=== PATIENT | male | born 1945 | race Caucasian/White ===

== ENCOUNTER 2018-03-16 10:06 | Day surgery (SDC) | payer MEDICARE ==
[~2018-03-16] VITALS: Ht 165.1 cm; Wt 60.3 kg
[~2018-03-16 10:06] MED LIST: CIPR500 PO; DOCU100 PO; FINA5 PO; HYDR1TAB94 PO; Omeprazole20 M1 PO; TAMS.4ER PO; [UNRECOGNIZED DRUG - OTHER] PO
== END 2018-03-16 13:18 | disposition home or self-care (01) ==
LOC: ORSCSDS 10:06
PROVIDERS: Internal Medicine Gastroenterology
PROC: 0DBN8ZX Excision of Sigmoid Colon, Via Natural or Artificial Opening Endoscopic, Diagnostic (ICD-10-PCS; principal; 2018-03-16 11:45)
PROC: 0DBH8ZX Excision of Cecum, Via Natural or Artificial Opening Endoscopic, Diagnostic (ICD-10-PCS; principal; 2018-03-16 11:45)
PROC: 0DBL8ZX Excision of Transverse Colon, Via Natural or Artificial Opening Endoscopic, Diagnostic (ICD-10-PCS; principal; 2018-03-16 11:45)
PROC: 0DBP8ZX Excision of Rectum, Via Natural or Artificial Opening Endoscopic, Diagnostic (ICD-10-PCS; principal; 2018-03-16 11:45)
DX: Z12.11 Encounter for screening for malignant neoplasm of colon (principal); D12.0 Benign neoplasm of cecum; D12.3 Benign neoplasm of transverse colon; D12.5 Benign neoplasm of sigmoid colon; D12.8 Benign neoplasm of rectum; K63.5 Polyp of colon; K64.4 Residual hemorrhoidal skin tags; K64.8 Other hemorrhoids; K57.30 Diverticulosis of large intestine without perforation or abscess without bleeding; J43.9 Emphysema, unspecified; F17.210 Nicotine dependence, cigarettes, uncomplicated; Z79.899 Other long term (current) drug therapy
CPT/HCPCS: 88305; J7120

== ENCOUNTER 2020-04-15 13:53 | Emergency (ER) | payer MEDICARE ==
[~2020-04-15] VITALS: Ht 167.6 cm; Wt 59.9 kg
[~2020-04-15 13:53] MED LIST changes: +ASPI81CH PO
[2020-04-15] MEDS ORDERED: ROSUVASTATIN CAL5 MG PO (16:16)
== END 2020-04-15 19:52 | disposition home or self-care (01) ==
LOC: ER 13:53
DX: M25.561 Pain in right knee (principal); M25.551 Pain in right hip; I69.351 Hemiplegia and hemiparesis following cerebral infarction affecting right dominant side; F17.210 Nicotine dependence, cigarettes, uncomplicated; Z79.82 Long term (current) use of aspirin; Z79.899 Other long term (current) drug therapy; W19.XXXA Unspecified fall, initial encounter
CPT/HCPCS: 70450; 73502; 73564; 99284-25

== ENCOUNTER 2020-05-22 00:23 | Day surgery (SDC) | payer MEDICARE ==
[~2020-05-22 00:23] MED LIST changes: +ROSUVASTATIN CAL5 MG PO
== END 2020-05-22 22:39 | disposition home or self-care (01) ==
LOC: WOUND 00:23
DX: L89.151 Pressure ulcer of sacral region, stage 1 (principal); I69.351 Hemiplegia and hemiparesis following cerebral infarction affecting right dominant side; F17.210 Nicotine dependence, cigarettes, uncomplicated; J43.9 Emphysema, unspecified; G25.81 Restless legs syndrome; Z79.82 Long term (current) use of aspirin; Z79.899 Other long term (current) drug therapy
CPT/HCPCS: G0463

== ENCOUNTER 2021-07-06 00:32 | Inpatient (IN) | payer OTHER, MEDICARE ==
[~2021-07-06] VITALS: Ht 182.9 cm; Wt 55.7 kg
[~2021-07-06 00:32] MED LIST changes: +DULO30 PO; +GABA100
[2021-07-06 01:17] LABS: BASOPHILS ABSOLUTE AUTO 0.01 K/mm3 (0.00-0.23); BASOPHILS PERCENT AUTO 0 % (0-2); EOSINOPHILS ABSOLUTE AUTO 0.11 K/mm3 (0.00-0.68); EOSINOPHILS PERCENT AUTO 1 % (0-6); Hematocrit 39.2 % (37.0-53.0); IMMATURE GRAN ABSOLUTE AUTO 0.05 K/mm3 (0.00-0.10); IMMATURE GRAN PERCENT AUTO 1 % (0-1); LYMPHOCYTES ABSOLUTE AUTO 0.51 K/mm3 (0.84-5.20); LYMPHOCYTES PERCENT AUTO 5 % (21-46); MONOCYTES ABSOLUTE AUTO 0.72 K/mm3 (0.16-1.47); MONOCYTES PERCENT AUTO 7 % (4-13); Mean Corpuscular HGB 29.5 pg (26.0-34.0); Mean Corpuscular HGB Conc 33.2 g/dL (31.5-36.5); Mean Corpuscular Volume 89 fL (80-100); Mean Platelet Volume 9.6 fL (9.1-12.4); NEUTROPHILS ABSOLUTE AUTO 8.65 K/mm3 (1.96-9.15); NEUTROPHILS PERCENT AUTO 86 % (41-73); Platelet Count 198 K/mm3 (150-400); RDW Coefficient Variation 13.6 % (11.7-14.2); RDW Standard Deviation 44.6 fL (35.1-46.3); Red Blood Cell Count 4.41 M/mm3 (4.30-5.90); White Blood Cell Count 10.05 K/mm3 (4.00-11.30)
[2021-07-06 01:35] LABS: Alanine Aminotransfer (ALT/SGP 21 U/L (12-78); Albumin, Blood 3.1 g/dL (3.4-5.0); Albumin/Globulin Ratio 0.8 (0.8-1.8); Alk Phos 109 U/L (50-136); Anion Gap 7 mmol/L (6-16); Aspartate Aminotrans (AST/SGOT 23 U/L (12-37); Bilirubin, Total 0.8 mg/dL (0.1-1.0); Blood Urea Nitrogen 10 mg/dL (8-24); Bun/Creatinine Ratio 19.9 (12.0-20.0); CO2, Blood 25 mmol/L (21-32); Calcium, Blood 8.7 mg/dL (8.5-10.1); Chloride, Blood 105 mmol/L (98-108); Glomerular Filtration Rate >60 (60-); Glucose, Blood 190 mg/dL (70-99); Potassium, Blood 3.7 mmol/L (3.5-5.5); Sodium, Blood 137 mmol/L (136-145); Total Protein, Blood 7.1 g/dL (6.4-8.2)
[2021-07-06 02:58] LABS: Source, Urine Foley catheter
[2021-07-06 03:01] LABS: Bilirubin, Urine Neg (Neg); Blood, Urine 5+ (Neg); Glucose Qualitative, Urine Neg (Neg); Ketones, Urine Neg (Neg); Leukocyte Esterase, Urine 3+ (Neg); Nitrite, Urine Pos (Neg); Protein, Urine Neg (Neg); Urobilinogen, Urine NORM (Normal)
[2021-07-06 03:03] LABS: Appearance, Urine Hazy (Clear); Color, Urine Yellow (P-Yellow)
[2021-07-06 03:08] LABS: Bacteria Many /hpf; Red Blood Cells, Urine 0-2 /hpf (0-2); Squamous Epithelial Cells Not Seen /hpf (Few); White Blood Cells, Urine 50-100 /hpf (0-5)
[2021-07-06 04:42] LABS: BASOPHILS ABSOLUTE AUTO 0.02 K/mm3 (0.00-0.23); BASOPHILS PERCENT AUTO 0 % (0-2); EOSINOPHILS ABSOLUTE AUTO 0.06 K/mm3 (0.00-0.68); EOSINOPHILS PERCENT AUTO 1 % (0-6); Hematocrit 35.4 % (37.0-53.0); Hemoglobin 11.5 g/dL (13.5-17.5); IMMATURE GRAN ABSOLUTE AUTO 0.07 K/mm3 (0.00-0.10); IMMATURE GRAN PERCENT AUTO 1 % (0-1); LYMPHOCYTES ABSOLUTE AUTO 0.82 K/mm3 (0.84-5.20); LYMPHOCYTES PERCENT AUTO 7 % (21-46); MONOCYTES PERCENT AUTO 7 % (4-13); Mean Corpuscular HGB 29.1 pg (26.0-34.0); Mean Corpuscular HGB Conc 32.5 g/dL (31.5-36.5); Mean Corpuscular Volume 90 fL (80-100); Mean Platelet Volume 9.6 fL (9.1-12.4); NEUTROPHILS ABSOLUTE AUTO 9.85 K/mm3 (1.96-9.15); NEUTROPHILS PERCENT AUTO 85 % (41-73); Platelet Count 174 K/mm3 (150-400); RDW Coefficient Variation 13.7 % (11.7-14.2); RDW Standard Deviation 44.9 fL (35.1-46.3); Red Blood Cell Count 3.95 M/mm3 (4.30-5.90); White Blood Cell Count 11.62 K/mm3 (4.00-11.30)
[2021-07-06 05:10] LABS: Anion Gap 6 mmol/L (6-16); Blood Urea Nitrogen 10 mg/dL (8-24); Bun/Creatinine Ratio 18.2 (12.0-20.0); CO2, Blood 25 mmol/L (21-32); Calcium, Blood 8.1 mg/dL (8.5-10.1); Chloride, Blood 107 mmol/L (98-108); Creatinine, Blood 0.55 mg/dL (0.60-1.20); Glomerular Filtration Rate >60 (60-); Glucose, Blood 129 mg/dL (70-99); Potassium, Blood 3.7 mmol/L (3.5-5.5); Sodium, Blood 138 mmol/L (136-145)
--- NOTE | 2021-07-06 06:02 | NUR ---
PT ADMITTED TO ROOM ICU 11 FROM ED. REPORT RECEIVED AND ASSUMED CARE. PT ARRIVES TO ROOM AT 0435. SLIDE TRANSFERRED TO BED FROM [facility]. 500 ML NS INFUSION IN PROCESS PER ORDERS. PT NON-VERBAL. DOES ANSWER YES OR NO QUESTIONS AT TIMES. PT IN NORMAL SINUS RHYTHM. REMAINS WITH HYPOTENSION. WILL CONTINUE TO MONITOR PT, AND WILL REPORT OFF TO ONCOMING RN.
--- NOTE | 2021-07-06 08:22 | NUR ---
ASSUMED CARE OF PT. PT IN ROMM RESTING AND COMFORTABLE. ASSESSMENT STATED AND VITALS WNL. PT REMAINS ON ROOM AIR. WILL CONTINUE TO MONITOR
--- NOTE | 2021-07-06 10:07 | NUR ---
Chart review revealed pt had MBSS 05/16/21 with recommendation that he be NPO and consider non-oral feeding system. Discussion with patient's today over the phone revealed the patient has been eating by mouth only nectar thick cream of wheat, nectar thick milk, and efraín bars, which she reports are one of his only pleasures in life at this time. She reports if he eats anything else he becomes ill. While she reports she feels he is tolerating these textures she verbalizes understanding of possibility of silent aspiration, and that based on the MBSS findings he likely is not tolerating these textures at least some of the time. ST will cancel speech therapy order for now.
--- NOTE | 2021-07-06 11:13 | NUR ---
SPEECH IN TO SEE PT AND NOTED A BARIUM STUDY CONDUCTED IN MAY. APPEARENTLY, PT FAILED AND WAS OFFERED A PEG BUT REFUSED. PT CONSIDERED STRICT NPO AFTER SPEECH TALKED TO . PT GIVEN COMFORT THINKENS AT HOME BUT ALSO CHOCKS ON THOSE WELL. AJ FROM [facility] CALLED. AJ WILL SPEAK TO SEE IF THERE ARE ANY OPTIONS TO PROCEED. WILL CONTINUE TO MONITOR.
--- NOTE | 2021-07-06 11:14 | NUR ---
LONG CONVERSATION VIA PHONE WITH PT'S AUGUSTINA. SHE STATES PT IS, AND HAS BEEN A DNR FOR THE PAST 2 YEARS. PER AUGUSTINA, HE RECEIVES 205 CAREGIVING HOURS A MONTH THROUGH THE [facility], AND HE IS WORKING WITH THE [facility] PALLIATIVE CARE TEAM WELL. SHE UNDERSTANDS THE PT HAS HAD SEVERAL "SMALL STROKES" THAT CONINUE TO FURTHER HIS OVERALL DECLINE, INCLUDING INCREASED ASPIRATION. HOWEVER, SHE HAS FOUND HE DOES WELL ON A VERY SIMPLE DIET OF THICKENED MILK,WATER AND CREAM OF WHEAT. AUGUSTINA DOES REPORT THE PT IS "BASICALLY ON COMFORT CARE" AT HOME, AND UNTIL NOW, SHE HAS CONTINUED TO "KEEP HIM GOING WELL POSSIBLE", ALONG WITH THE HELP OF THEIR CAREGIVERS, WHO ALL HAVE EXTENSIVE BACKGROUNDS IN HOME CARE AND HOSPICE CARE. SHE REPORTS HOSPICE BEING RECOMMENDED IN THE PAST, BUT THEY WANTED TO JUST CONTINUE WITH CURRENT CARE AND REGIMEN UNLESS SOMETHING MAJOR CHANGED. AUGUSTINA STATES THAT ON Jun, PATIENT HAD A FEVER AND MALAISE. HIS PCP RECOMMENDED HE GO TO ER. HE WAS TESTED FOR A UTI, BUT SENT HOME, AND NO RESULTS OR ANTIBIOTICS WERE EVER MENTIONED. THEN, ON Jun, PT DEVELOPED A WET COUGH AND BEGAN TO DECLINE RAPIDLY. SHE DID A HOME COVID TEST ON HIM, BY NOW 2 OF THE CAREGIVERS WELL OTHER FAMILY HAD TESTED POSITIVE FOR COVID. PT'S COVID TEST WAS POSITIVE, SO SHE SENT HIM BACK TO THE ER. HE WAS THEN ADMITTED WITH UTI, SEPSIS. AUGUSTINA IS REALISTIC, AND UNDERSTANDS PATIENT MAY NOT RECOVER TO PREVIOUS BASELINE. SHE IS MOSTLY CONCERNED WITH GETTING THE UTI TREATED, WHICH IT SOUNDS LIKE THAT IS BEING DONE. AND HE IS ON ROOM AIR, SO THE COVID DOESN'T APPEAR TO BE A BARRIER FOR HIM RETURNING HOME. WILL DISCUSS WITH DR. HOLT.
--- NOTE | 2021-07-06 11:50 | NUR ---
TALKED TO AJ AFTER HER CONVERSATION WITH . HER NOTE MUST READ. PT WILL CONTINUE NPO AND HOPES WITH CAN TREAT INFECTION WITH ANTIBIOTICS AND SENT PT HOME SOON TO CONTINUE HOME CARE AND POSSIBLE TRANSITION TO HOSPICE.
--- NOTE | 2021-07-06 13:37 | NUR ---
Spoke with and received orders from Dr. Cardoza as well as speaking again to pt's Hina. She is pt's healthcare respresentative and is agreeable to placing pt on comfort care so that he can eat, and receive his gabapentin and antibiotics. She is also agreeable to a hospice consult upon pt discharge, as she now has a better understanding of what hospice is. Automatic Chief to assist with pt's preferred diet, which is nectar thick water and milk, as well as one serving of Cream of Wheat up to 3 times daily. Hina assures me that pt declines any other food, except for small bites of chocolate Herschey Bar. She reiterates her goal at home is to let him live comfortably, and this is what he likes. Will attempt to place hospice referral for early next week so not to delay discharge longer than need be. Pt's states she is very happy with this plan, and grateful to the health care team.
--- NOTE | 2021-07-06 20:12 | NUR ---
ASSUMED CARE OF PT AT 1915. REPORT RECEIVED. PT PRESENTS IN BED. IS ABLE TO ANSWER QUESTIONS WITH YES OR NO REPLIES. 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 PLACED 16 [employer] B[employer]RIS CATHETER FOR COMFORT CARE. PT TOLERATES WELL. WILL REVIEW CHART AND PLAN OF CARE FOR THIS PT.
--- NOTE | 2021-07-07 05:53 | NUR ---
PT HAS TOLERATED TURNS IN BED. AWAKENS EASILY. ANSWERS YES/NO TYPE QUESTIONS. FROM READING N.N AND PALIATIVE NOTES; NOTED THAT PT REALLY ENJOYED 'NANDINI BARS' DID RECEIVE FUN SIZE NANDINI BARS DONATED BY OUR EMERGENCY DEPARTMENT. PLACED THESE IN ROOM. DID INFORM PT THAT IF HE DESIRED ONE DURNG DAY TO LET STAFF KNOW. WILL CONTINUE TO MONITOR PT, AND WILL REPORT OFF TO ONCOMING RN.
--- NOTE | 2021-07-07 10:24 | NUR ---
ASSUME CARE: I assumed care of this pt at 0700.
--- NOTE | 2021-07-07 15:18 | NUR ---
Pt remains in ICU, but Medical Status. He remains able to answer yes and no questions. He is eating bites, as expected as this was his home baseline. Famly to meet with hospice, as pt's is interested in hospice eval for the patient. No eval set up yet, but hopeful it can be set up in the morning.
--- NOTE | 2021-07-07 18:42 | NUR ---
SHIFT SUMMARY: Pt received bed bath and catheter care this morning. He has tolerated turns well. This RN was informed by palliative care that pt prefers cream of wheat with brown sugar for his meals. Pt took meals and small chocolate bars today without issue. Oral care and suctioning of the posterior oropharynx performed due to wet gurgling sound.
--- NOTE | 2021-07-07 19:24 | NUR ---
ASSUMED PT CARE AT 1915 PT RESTING COMFORTABLY IN BED. CALLED FOR AN UPDATE. INQUIRING ABOUT PT DISCHARGING ON POSSIBLY THURSDAY OR THURSDAY. INFORMED THAT THERE WEREN'T ANY DISCHARGE PLANS KNOWN AT THIS TIME; HOWEVER, PER READING PALLIATIVE CARE NOTE IT APPEARS FAMILY IS INQUIRING ABOUT HOSPICE. CONFIRMED THAT WAS THE CASE. STATES THAT THEY ARE ALL AT HOME WITH COVID AT THIS TIME AND SHE IS REASSURED KNOWING HER IS HERE BEING TAKEN CARE OF AT THIS TIME.
--- NOTE | 2021-07-07 21:47 | NUR ---
COMFORT CARES PT NONVERBAL. ABLE TO ANSWER YES/NO QUESTIONS. DENIED BEING IN ANY PAIN. PT HAD SCHEDULED ANTIBIOTICS DUE AT 2100. PT ABLE TO SWALLOW PILL WHOLE WITH NECTAR THICK WATER WITHOUT ISSUE. PT DOES HAVE AUDIBLE GURGLE NOTED TO BACK OF THROAT; HAS STRONG COUGH, BUT STILL UNABLE TO CLEAR. ORAL CARES AND CATHETER CARES PERFORMED. PT REPOSITIONED TO RIGHT SIDE. ASKED IF PT WAS COMFORTABLE AND HE STATED "YES". INFORMED HIM THAT FAMILY HAD CALLED TO CHECK ON HIM AND WERE UNABLE TO COME SEE HIM AT THIS TIME DUE TO THE FAMILY BEING QUARANTINED D/T COVID. INFORMED PT I WOULD BE BACK IN A COUPLE HOURS TO CHECK ON HIM.
--- NOTE | 2021-07-08 04:30 | NUR ---
END OF SHIFT SUMMARY PT MEDICATED WITH ROXONAL X2 THIS SHIFT D/T AIR HUNGER/GURGLING. PT REPOSITIONED WITH ORAL CARES AND OFFERING WATER, AND CHOCOLATE WITH EVERY ENCOUNTER. PT ABLE TO MAKE HIS NEEDS KNOWN THROUGH YES/NO QUESTIONS. WILL CONTINUE TO MONITOR UNTIL REPORT IS HANDED OFF TO ONCOMING RN.
--- NOTE | 2021-07-08 09:13 | NUR ---
CARE OF PT ASSUMED AT 0700. PT AWAKE WATCHING TV. PT ABLE TO COMMUNICATE BY SPELLING OUT WORDS ON BOARD. PT C/O FEET BEING NUMB, DENIES PAIN, DECLINES PAIN MEDICATION. PT FED CREAM OF WHEAT; PAM WELL. PT INDICATED THAT HE WANTED TO WATCH A WESTERN. WESTERN PROVIDED ON TV. PT REPOSITIONED TO RIGHT SIDE.
--- NOTE | 2021-07-08 09:42 | NUR ---
ORAL CARE AND SUCTIONING PROVIDED
--- NOTE | 2021-07-08 11:23 | NUR ---
Received referral from palliative care RN (Xochitl Covarrubias) on 07/08/2021. Patient is to discharge with orders for hospice and family elected [facility]. Gathered supporting documentation for referral (face sheet, labs, imaging, progress notes, palliative care note, and H&P) and sent to [facility] oss architect (Dalton Reece) for review of hospice appropriateness and ability to accept patient onto service post discharge. Will await further information from hospice oss architect regarding the above. Yasmin Velarde Referral Liaison
--- NOTE | 2021-07-08 12:11 | NUR ---
PT C/O FOOT PAIN, DECLINED MEDICATION. FEET RUBBED, PT FELL ASLEEP, WHEN AWAKE HE COMMUNICATED THAT THE FOOT RUB HELPED. FOAM HEEL PROTECTORS PLACED. PT DECLINED LUNCH, I OFFERED HIM HIS PUDDING SEVERAL TIMES, HE THEN WROTE OUT VIA POINTING ON LETTER BOARD "YOU CAN HAVE MY PUDDING" AND SMILED BIG.
--- NOTE | 2021-07-08 12:22 | NUR ---
PT TO BE DC'D HOME W HOSPICE. CATHETER TO BE LEFT IN PER AJ W PALIATIVE CARE. DOXYCYCLINE FAXED TO [facility] PER PT'S 'S REQUEST.
--- NOTE | 2021-07-08 12:25 | NUR ---
Pt's reports today she was in contact with the [facility], and they assured her the pt would be able to keep his 205 caregiving hours monthly through the [facility] even with hospice, and that pt's social media analyst at the [facility] agreed he would benefit from hospice. Pt to d/c home today as he is Medical Floor status, and other than taking po antibiotics, there are no new treatments being done in the hospital setting. Pt denies pain or SOB. He continues to have a wet cough, but according to his , this is also his baseline. She also request we leave the catheter in place, as it will be better overall for the pt by lessening the chance of skin breakdown. Hospice eval given to Yasmin Velarde for [facility].
[2021-07-08] MEDS ORDERED: 1/2 NS 250ml250 ML (12:37)
[2021-07-08] MEDS ORDERED: DOXY100 PO (12:37)
--- NOTE | 2021-07-08 15:08 | NUR ---
PT GIVEN FULL BED BATH. BM CLEANED. PT PLACED IN CLOTHES TO GO HOME IN.
--- NOTE | 2021-07-08 15:20 | NUR ---
Late Entry from 07/08/2021 at 1230: Contacted [facility] nurse anesthetist (Dalton Gordon) regarding patient's hospice appropriateness. At this time, patient has not been reviewed. Received notification from nurse ocular care aide (Aimee Kearney) that patient is discharging and transportation is being arranged. Discussed with nurse ocular care aide that this typewriter assembler would meet with patient and family CHANDRAKANT to further discuss the above. Will continue to monitor and follow for discharge. Yasmin Velarde Referral Liaison
--- NOTE | 2021-07-08 15:20 | NUR ---
Late Entry from 07/08/2021 at 1300: Contacted patient's (Hina Qiu) to further discuss hospice services and the election of [facility]. Patient's is agreeable to the above. Discussed what hospice is (reserved for patients with a terminal diagnosis with life expectancy of 6 months or less). Discussed that some patients exceed the 6 months expectancy and stay on service and some patients stabilize and come off hospice. Patient's verbalized understanding of the above. Discussed with patient's that hospice service focuses on quality of life at the end of life and that rather than measuring the quantity of days, the quality of those days would be measured. Discussed with patient's that with hospice service the goal would be to keep the patient out of the hospital and comfortable by managing symptoms at home. Patient's verbalized understanding. Discussed the people, prescriptions, and equipment of hospice. People- discussed the team of people and their roles (RNs, chaplains, therapists, LCSWs, CNAs, and volunteers) that would be there to support not only the patient but also their family during this time. Explained to the patient's that the team would be custom tailored to the patient and family's needs during this time. Patient's verbalized understanding. Prescriptions- discussed that we utilize a mail order pharmacy ([facility]) to provide medications related to the hospice diagnosis and for symptom management. All other medications that patient chose to stay on would be patient's and/or patient's family's responsibility to provide and pay for. Patient's verbalized understanding. Equipment- discussed with patient that we contract through [employer] to provide DME such as hospital beds, commodes, etc. to patient. At this time admission date to hospice is unknown. As such no orders for DME were written. Discussed with patient's that the consulting/admitting RN would assess and order upon admission. Patient's verbalized understanding. Nurse inspector health care facilities assigned to patient will coordinate transportation home for patient as discharge orders have already been entered for patient. No further interventions required. Yasmin Velarde Referral Liaison
--- NOTE | 2021-07-08 17:00 | NUR ---
PT DC'D HOME IN CARE OF TRANSPORT VAN. PT ASSISTED TO WHEELCHAIR. PT'S GIVEN FULL DISCHARGE INSTRUCTIONS OVER THE PHONE. HOSPICE TO FOLLOW UP W FAMILY. HOME HEALTH WILL BE THERE WHEN PT'S GET HOME TO HELP SETTLE HIM ON ARRIVAL PER . IV DC'D PRIOR TO DISCHARGE. COPIES OF DC INSTRUCTIONS SENT HOME WITH PATIENT. PT'S CALLED TO LET HER KNOW HER IS ON HIS WAY HOME.
== END 2021-07-08 17:15 | disposition hospice, home (50) | DRG 871 ==
LOC: ER 00:32 → ICUW 04:11
PROVIDERS: Emergency Medicine; Family Medicine; ADMIT Internal Medicine
PROC: 8E0ZXY6 Isolation (ICD-10-PCS; principal; 2021-07-06)
PROC: XW033H6 Introduction of Other New Technology Monoclonal Antibody into Peripheral Vein, Percutaneous Approach, New Technology Group 6 (ICD-10-PCS; 2021-07-06)
DX: A41.89 Other specified sepsis (principal); U07.1 COVID-19; N39.0 Urinary tract infection, site not specified; E87.2 Acidosis; R65.20 Severe sepsis without septic shock; I95.9 Hypotension, unspecified; Z66 Do not resuscitate; Z51.5 Encounter for palliative care; Z23 Encounter for immunization; R13.10 Dysphagia, unspecified; N40.0 Benign prostatic hyperplasia without lower urinary tract symptoms; F17.210 Nicotine dependence, cigarettes, uncomplicated; Z86.73 Personal history of transient ischemic attack (TIA), and cerebral infarction without residual deficits; Z28.21 Immunization not carried out because of patient refusal; Z79.82 Long term (current) use of aspirin; Z79.899 Other long term (current) drug therapy; Z98.890 Other specified postprocedural states
CPT/HCPCS: 36415; 51701; 51702; 71045; 80048; 80053; 81001; 83605; 84145; 85025; 87040; 87077; 87086; 87186; 96374; 96375; 99285-25; A9270; J0696; J1885; J7030; J7040; M0247; Q0247